=== PATIENT | female | born 1985 | race Caucasian/White ===

== ENCOUNTER 2019-02-18 11:09 | Outpatient (CLI) | payer OTHER ==
[2019-02-18 11:28] VITALS: BP 106/61
[2019-02-18] MEDS ORDERED: DIPHENHYDRAMINE 25 MG CAPSULE PO PRN (14:00)
[2019-02-18] MEDS ORDERED: PROMETHAZINE 25 MG/ML, 1ML IM PRN (14:00)
[2019-02-18] MEDS ORDERED: DIPHENHYDRAMINE 25 MG CAPSULE ONE (14:23)
[2019-03-06] MEDS ORDERED: IBUP-1222 PO (13:28)
[2019-03-06] MEDS ORDERED: DOCU-131 PO (13:28)
== END 2019-02-18 14:35 | disposition home or self-care (01) ==
LOC: LDOP 11:09
PROVIDERS: ATTEND Obstetrics & Gynecology
DX: O26.893 Other specified pregnancy related conditions, third trimester (principal); O21.2 Late vomiting of pregnancy; R10.31 Right lower quadrant pain; Z3A.37 37 weeks gestation of pregnancy
CPT/HCPCS: 59025; 96372; 96374; 99201; J2550; Q0163; G0463

== ENCOUNTER 2019-02-18 19:40 | Outpatient (CLI) | payer OTHER ==
[~2019-02-18] VITALS: Ht 157.5 cm; Wt 67.2 kg
[2019-02-18] MEDS ORDERED: LACTATED RINGERS 1,000 ML IV SCH (19:48)
[2019-02-18] MEDS ORDERED: D5%-LACTATED RINGERS 1,000 ML IV SCH (19:48)
[2019-02-18] MEDS ORDERED: PLEASE ENTER ALLERGIES MC SCH (20:00)
[2019-02-18] MEDS ORDERED: ONDANSETRON 2MG/ML, 2ML IVPush PRN (20:00)
[2019-02-18] MEDS ORDERED: ONDANSETRON 2MG/ML, 2ML ONE (20:16)
[2019-02-18] MEDS ORDERED: METOCLOPRAMIDE 5 MG/ML, 2ML IVPush ONE (21:00)
[2019-02-18] MEDS ORDERED: METOCLOPRAMIDE 5 MG/ML, 2ML ONE (21:11)
[2019-02-18] MEDS ORDERED: LACTATED RINGERS 1,000 ML IVBOLUS ONE (21:30)
[2019-02-18] MEDS ORDERED: MORPHINE SULFATE 4 MG/ML, 1ML ONE (21:44)
[2019-02-18] MEDS ORDERED: morphine SULFATE 10 MG/ML, 1ML IVPush ONE (22:00)
[2019-02-18 22:03] LABS: BASOPHILS # (AUTO) 0.05 x10^3/uL (0-0.1); BASOPHILS % (AUTO) 0 % (0-1); EOSINOPHILS % (AUTO) 0 % (1-7); LYMPHOCYTES # (AUTO) 1.66 x10^3/uL (1-3.4); LYMPHOCYTES % (AUTO) 15 % (22-44); MD NO; MEAN CORPUSCULAR HEMOGLOBIN 30.8 pg (27.0-34.8); MEAN CORPUSCULAR HGB CONC 32.9 g/dL (32.4-35.8); MEAN CORPUSCULAR VOLUME 93.7 fL (80-100); MEAN PLATELET VOLUME 10.5 fL (7.4-10.4); MONOCYTES # (AUTO) 0.55 x10^3/uL (0.2-0.8); MONOCYTES % (AUTO) 5 % (2-9); NEUTROPHILS % (AUTO) 80 % (42-75); PLATELET COUNT 189 x10^3/uL (130-400); RED BLOOD COUNT 3.77 x10^6/uL (3.82-5.3); RED CELL DISTRIBUTION WIDTH 13.3 % (9.6-15.2)
[2019-02-18 22:11] LABS: ALANINE AMINOTRANSFERASE 14 U/L (12-78); ALBUMIN 2.4 g/dL (3.4-5.0); ANION GAP 9 mmol/L (5-15); CALCIUM 8.5 mg/dL (8.5-10.1); CHLORIDE 106 mmol/L (98-107); CREATININE 0.57 mg/dL (0.55-1.02)
[2019-02-18 22:14] LABS: ALKALINE PHOSPHATASE 135 U/L (45-117); BILIRUBIN,TOTAL 0.3 mg/dL (0.2-1.0); TOTAL PROTEIN 6.1 g/dL (6.4-8.2)
[2019-02-18] MEDS ORDERED: CEFTRIAXONE PMX 1GM/50ML 50 ML IV ONE (22:30)
[2019-02-18] MEDS ORDERED: KETOROLAC 30 MG/1 ML ONE (23:10)
[2019-02-18] MEDS ORDERED: KETOROLAC 30 MG/1 ML IVPush ONE (23:30)
[2019-02-19] MEDS ORDERED: D5%-LACTATED RINGERS 1,000 ML IV SCH (19:48)
[2019-03-06] MEDS ORDERED: IBUP-1222 PO (13:28)
[2019-03-06] MEDS ORDERED: DOCU-131 PO (13:28)
== END 2019-02-19 00:34 | disposition home or self-care (01) ==
LOC: LDOP 19:40
PROVIDERS: ATTEND Obstetrics & Gynecology
DX: O21.2 Late vomiting of pregnancy (principal); O26.893 Other specified pregnancy related conditions, third trimester; R10.31 Right lower quadrant pain; O99.89 Other specified diseases and conditions complicating pregnancy, childbirth and the puerperium; N13.30 Unspecified hydronephrosis; Z3A.37 37 weeks gestation of pregnancy
CPT/HCPCS: 36415; 59025; 76770; 80053; 81003; 85025; 96361; 96365; 96375; 99211; J0696; J1885; J2270; J2405; J2765; J7120; J7121; 81001; 87086; 96360; 96374; G0463